=== PATIENT | female | born 1970 | race Caucasian/White ===

== ENCOUNTER → 2020-04-29 15:11 | Outpatient (CLI) | payer BC, SELFPAY ==
[2020-04-29 17:22] LABS: Rubella Antibody IgG 26.3 IU/mL (>15)
[2020-04-30 08:28] LABS: Rubeola Measles IgG < 13.5 AU/mL (Immune >16.4); Varicella IgG Antibody 961 index (Immune >165)
[2020-04-30 23:41] LABS: Hepatitis B Surf Ab Qualitativ Non Reactive (.)
[2020-05-01 14:07] LABS: Mumps Virus IgG Antibody 9.5 AU/mL (Immune >10.9)
== END ==
PROVIDERS: PCP Registered Nurse Diabetes Educator; Referring Provider Registered Nurse Diabetes Educator; Visit Provider Registered Nurse Diabetes Educator
DX: Z02.1 Encounter for pre-employment examination (principal)
CPT/HCPCS: 36415; 86706; 86735; 86762; 86765; 86787

== ENCOUNTER → 2020-06-30 12:30 | Outpatient (CLI) | payer BC, SELFPAY ==
[2020-06-30] MEDS: COVID-19 VACC #1, MRNA(MOD) 100 MCG/0.5 ML VIAL IM (12:39)
== END ==
PROVIDERS: PCP Registered Nurse Diabetes Educator; Visit Provider Internal Medicine
DX: Z23 Encounter for immunization (principal)
CPT/HCPCS: 0011A; 91301

== ENCOUNTER → 2020-07-28 10:27 | Outpatient (CLI) | payer BC, SELFPAY ==
[2020-07-28] MEDS: COVID-19 VACC #2, MRNA(MOD) 100 MCG/0.5 ML VIAL IM (10:34)
== END ==
PROVIDERS: PCP Registered Nurse Diabetes Educator; Visit Provider Internal Medicine
DX: Z23 Encounter for immunization (principal)
CPT/HCPCS: 0012A; 91301